=== PATIENT | male | born 1980 | race Caucasian/White ===

== ENCOUNTER 2024-12-29 00:13 | Emergency (ER) | payer SELFPAY ==
[~2024-12-29] VITALS: Ht 167.6 cm; Wt 98.0 kg
[2024-12-29 00:18] VITALS: O2SAT 100
[2024-12-29 01:00] VITALS: TEMP 36.5
[2024-12-29 01:26] LABS: CLARITY URINE CLEAR (CLEAR); COLOR URINE YELLOW (YELLOW); GLUCOSE URINE NEGATIVE (NEGATIVE); KETONES URINE TRACE (NEGATIVE); LEUKOCYTE ESTERASE URINE NEGATIVE (NEGATIVE); NITRITE URINE NEGATIVE (NEGATIVE); OCCULT BLOOD URINE 3+ (NEGATIVE); PH URINE 6.0 (4.5-8.0); PROTEIN URINE TRACE (NEGATIVE); SPECIFIC GRAVITY URINE 1.027 (1.005-1.030); UROBILINOGEN URINE 1.0 E.U./dL (0.2-1.0)
[2024-12-29] MEDS: SODIUM CHLORIDE 0.9% 1,000 ML IV ONE (01:41)
[2024-12-29] MEDS: ONDANSETRON HCL 4MG/2ML INJ IV ONE (01:43)
[2024-12-29] MEDS: KETOROLAC 15MG/ML VIAL IV ONE ×2 (01:44→03:56)
[2024-12-29 01:51] LABS: BACTERIA URINE TRACE; RBC URINE 15-25 /hpf (0-2); SQUAMOUS EPITHELIAL CELL URINE FEW /lpf (RARE/1+); WBC URINE 0-2 /hpf (0-2)
[2024-12-29 01:51] LABS: BASOPHILS % 0.6 % (0.0-2.0); EOSINOPHILS % 1.4 % (0.0-5.0); HEMATOCRIT. 42.3 % (42.0-52.0); HEMOGLOBIN. 14.1 g/dL (14.0-18.0); LYMPHOCYTES % 33.1 % (20.0-50.0); MEAN PLATELET VOLUME 9.1 fl (7.4-10.4); MONOCYTES % 8.9 % (2.0-8.0); NEUTROPHILS % 56.0 % (40.0-76.0); PLATELET 320 x1000/uL (130-400); RED BLOOD CELL COUNT 4.95 mill/uL (4.7-6.1); RED CELL DISTRIBUTION WIDTH 13.6 % (11.6-14.6)
[2024-12-29 02:05] LABS: CREATININE 0.8 mg/dL (0.6-1.3); UREA NITROGEN BLOOD 11 mg/dL (9-23)
[2024-12-29 02:06] LABS: ETHANOL BLOOD < 10 mg/dL (<10)
[2024-12-29 02:07] LABS: *AMPHETAMINES SCREEN URINE NEGATIVE (NEGATIVE); *BARBITURATES SCREEN URINE NEGATIVE (NEGATIVE); *BENZODIAZEPINES SCREEN URINE NEGATIVE (NEGATIVE); *COCAINE SCREEN URINE NEGATIVE (NEGATIVE); CANNABINOID URINE SCREEN NEGATIVE (NEGATIVE); ECSTASY MDMA SCREEN URINE NEGATIVE (NEGATIVE); METHADONE URINE SCREEN NEGATIVE (NEGATIVE); OPIATES URINE SCREEN NEGATIVE (NEGATIVE); PHENCYCLIDINE URINE SCREEN NEGATIVE (NEGATIVE)
[2024-12-29 02:07] LABS: ASPARTATE AMINOTRANSFERASE 23 IU/L (<34); BILIRUBIN DIRECT 0.1 mg/dL (<=3.0); BILIRUBIN TOTAL 0.3 mg/dL (0.1-1.0); PROTEIN TOTAL 7.1 g/dL (6.0-8.3)
[2024-12-29] MEDS ORDERED: TAMS-54 MT (03:19)
[2024-12-29] MEDS ORDERED: IBUP-1455 MT (03:19)
[2024-12-29] MEDS ORDERED: CEPH500T MT (03:19)
[2024-12-29] MEDS ORDERED: ONDA4TAB50 MT (03:19)
[2024-12-29] MEDS: CEPHALEXIN 250MG CAPSULE PO NR (03:55)
[2024-12-29] MEDS: TAMSULOSIN HCL 0.4MG SR CAPSULE PO NR (03:55)
[2024-12-29 04:00] VITALS: BP 117/74; PULSE 74; RESP 13; O2SAT 97
== END 2024-12-29 04:10 | disposition home or self-care (01) ==
LOC: ER 00:13
DX: N13.2 Hydronephrosis with renal and ureteral calculous obstruction (principal); Z79.899 Other long term (current) drug therapy
CPT/HCPCS: 80076; 80305; 80048; 81003; 80320; 83690; 85025; 36415; 74176; 96361; 96374; 96375; 99285; J1885; J2405; J7030; G0480